=== PATIENT | male | born 1965 | race Caucasian/White ===

== ENCOUNTER 2018-10-11 08:35 | Day surgery (SDC) | payer OTHER ==
[2018-10-11] MEDS ORDERED: PROPOFOL 60 ML (09:52)
[2018-10-11] MEDS ORDERED: FENTAnyl 50 MCG/ML VIAL IV (10:00)
[2018-10-11] MEDS ORDERED: ACETAMINOPHEN 500 MG TAB PO (10:00)
[2018-10-11] MEDS ORDERED: ALBUTEROL 0.083% (NEB) 2.5 MG/3 ML AMP HHN (10:00)
[2018-10-11] MEDS ORDERED: ONDANSETRON 4 MG INJ IV (10:00)
== END 2018-10-11 13:12 | disposition home or self-care (01) ==
LOC: GIL 08:35
DX: K92.1 Melena (principal); K64.8 Other hemorrhoids; K57.30 Diverticulosis of large intestine without perforation or abscess without bleeding; K21.0 Gastro-esophageal reflux disease with esophagitis; I10 Essential (primary) hypertension; E78.5 Hyperlipidemia, unspecified
CPT/HCPCS: 43239; 88305; 88312